=== PATIENT | female | born 1990 | race American Indian/Alaskan Native ===

== ENCOUNTER 2018-06-24 11:57 | Emergency (ER) | payer BC ==
--- NOTE | 2018-06-24 13:07 | Emergency Department Report ---
Blank Doc - Documentation Documentation: 27 y o presents with confirmed preg at7 weeks presents with vaginal bleed ing x today labs ordered U/S ordered acc evaluate
[2018-06-24 13:21] LABS: Bilirubin,Urine NEG (Negative); Blood,Urine LG (Negative); Color,Urine Red (Yellow); Urobilinogen,Urine < 2.0 mg/dL (<2.0)
[2018-06-24 13:22] LABS: RBC,Urine > 182.0 /HPF (0.0-6.0); WBC,Urine > 182.0 /HPF (0.0-6.0)
--- NOTE | 2018-06-24 13:29 | Emergency Department Report ---
ED HPI - General Chief complaint: Vaginal Bleeding Stated complaint: 8 WKS /BLEEDING Time Seen by Provider: 06/24/18 13:01 Source: patient Mode of arrival: Ambulatory Limitations: No Limitations - History of Present Illness Initial comments: And is a 27-year-old female that presents emergency room with complaints of vaginal bleeding during . Patient states she somewhat between 6 and 8 weeks . Patient has not had care yet. Patient has confirmed with her primary care. Patient denies fever or chills. Patient denies abdominal pain. Patient denies cramping. Patient denies chest pain or shortness of breath. Patient denies nausea and vomiting. Patient states her vaginal spotting started 2 hours ago MD Complaint: vaginal bleeding -: Sudden Radiation: none Severity scale (0 -10): 0 Consistency: constant Improves with: none Worsens with: none Associated symptoms: vaginal bleeding. denies: nausea/vomiting, vaginal discharge, abdominal pain, dysuria, headache, vision changes, malaise, dys paruenia, rash, seizure, shortness of breath, syncope, weakness Vaginal bleeding: clots :: Yes OB History - Current : no complications OB History - Previous Pregnancies: no complications Pre- care: none - Related Data Allergies Allergy/AdvReac Type Severity Reaction Status Date / Time latex Allergy Hives Verified 06/24/18 11:58 ED Review of Systems ROS: Stated complaint: 8 WKS /BLEEDING Other details as noted in HPI Constitutional: denies: chills, fever Eyes: denies: eye pain, eye discharge, vision change ENT: denies: ear pain, throat pain Respiratory: denies: cough, shortness of breath, wheezing Cardiovascular: denies: chest pain, palpitations Endocrine: no symptoms reported Gastrointestinal: denies: abdominal pain, nausea, diarrhea Genitourinary: denies: urgency, dysuria, discharge Musculoskeletal: denies: back pain, joint swelling, arthralgia Skin: denies: rash, lesions Neurological: denies: headache, weakness, paresthesias Psychiatric: denies: anxiety, depression Hematological/Lymphatic: denies: easy bleeding, easy bruising ED Past Medical Hx - Past Medical History Previous Medical History?: No - Surgical History Past Surgical History?: Yes Additional Surgical History: 2017 - Family History Family history: no significant - Social History Smoking Status: Never Smoker Substance Use Type: None ED Physical Exam - General Limitations: No Limitations General appearance: alert, in no apparent distress - Head Head exam: Present: atraumatic, normocephalic - Eye Eye exam: Present: normal appearance - ENT ENT exam: Present: mucous membranes moist - Neck Neck exam: Present: normal inspection - Respiratory Respiratory exam: Present: normal lung sounds bilaterally. Absent: respiratory distress - Cardiovascular Cardiovascular Exam: Present: regular rate, normal rhythm. Absent: systolic murmur, diastolic murmur, rubs, gallop - GI/Abdominal GI/Abdominal exam: Present: soft, normal bowel sounds. Absent: distended, tenderness, guarding, rebound - Extremities Exam Extremities exam: Present: normal inspection - Back Exam Back exam: Present: normal inspection - Neurological Exam Neurological exam: Present: alert, oriented X3 - Psychiatric Psychiatric exam: Present: normal affect, normal mood - Skin Skin exam: Present: warm, dry, intact, normal color. Absent: rash ED Course Vital Signs 06/24/18 12:46 Temperature 98.5 F Pulse Rate 78 Respiratory 16 Rate Blood Pressure 136/91 O2 Sat by Pulse 100 Oximetry - Reevaluation(s) Reevaluation #1: Discussed all results with patient. Patient emotional. All questions answered. Patient and family support given. Patient and given discharge inst ructions. and patient voice understanding of discharge instructions. 06/24/18 16:05 - Consultations Consultation #1: Discussed case with Dr. Pimentel. Dr. Pimentel recommends discharge and patient to follow-up with their office within 2 days. 06/24/18 16:34 ED Medical Decision Making - Lab Data Result diagrams: 06/24/18 13:40 - Radiology Data Radiology results: report reviewed PROCEDURE: US OB TRANSVAGINAL, US OB <= 14 WEEKS FETUS TECHNIQUE: Transabdominal and transvaginal imaging of the pelvis was performed. HISTORY: vaginal bleed. pos hcg COMPARISONS: None. FINDINGS: The uterus measures 11.3 x 6 x 8.4 cm. There are multiple fibroids. The largest is in the posterior right uterus measuring approximately 2.6 x 2.6 x 2.1 cm. The endometrium measures 2.3 cm in thickness. There is no intrauterine visualized at this time. The right ovary measures 3.6 x 2.7 x 2 cm and is normal in morphology. The left ovary measures 3.2 x 1.5 x 4.8 cm and is normal in morphology. There is a trace amount of free fluid in the cul-de-sac. IMPRESSION: No intrauterine is visualized at this time. Findings may represent very early intrauterine versus failed first trimester . Recommend serial beta hCG measurements and ultrasound follow-up as clinically indicated. Multiple fibroids measuring up to 2.6 cm. - Medical Decision Making Patient is a 27-year-old female that presents to the emergency room with mild vaginal bleeding. Patient found to have a positive hCG below. Patient had an ultrasound done and the ultrasound showed empty uterus. Vaginal findings significant for either early gestation or spontaneous miscarriage. Patient will be discharged home. Patient stable for discharge. Prior to discharge [facility] was consulted. - Differential Diagnosis miscarriage. Vaginal bleeding. spotting. Critical care attestation.: If time is entered above; I have spent that time in minutes in the direct care of this critically ill patient, excluding procedure time. ED Disposition Clinical Impression: Vaginal bleeding before 22 weeks gestation, Threatened miscarriage in early Disposition: DC- TO HOME OR SELFCARE Is pt being admited?: No Does the pt Need Aspirin: No Condition: Stable Instructions: Spontaneous Miscarriage (ED), Threatened Miscarriage (ED) Additional Instructions: Patient to follow up with primary care in 2-3 days. Patient to follow with [facility] in 2-3 days. Patient to return to the condition worsens. Patient to have serial serum hCGs drawn with [facility]. Patient to take Tylenol for pain. Patient to start a vitamin. Referrals: ALFONSO EDWARDS MD [Primary Care Provider] - 2-3 Days Time of Disposition: 16:17
[2018-06-24 13:53] LABS: Hematocrit 26.2 % (30.3-42.9); Mean Corpuscular HGB Conc 30 % (30-34); Platelet Count 489 K/mm3 (140-440); Red Blood Count 4.25 M/mm3 (3.65-5.03); Red Cell Distribution Width 20.1 % (13.2-15.2)
[2018-06-24 13:54] LABS: Mean Corpuscular Volume 62 fl (79-97)
--- NOTE | 2018-06-24 16:01 | Ultrasound Report ---
PROCEDURE: US OB TRANSVAGINAL, US OB <= 14 WEEKS FETUS TECHNIQUE: Transabdominal and transvaginal imaging of the pelvis was performed. HISTORY: vaginal bleed. pos hcg COMPARISONS: None. FINDINGS: The uterus measures 11.3 x 6 x 8.4 cm. There are multiple fibroids. The largest is in the posterior right uterus measuring approximately 2.6 x 2.6 x 2.1 cm. The endometrium measures 2.3 cm in thickness. There is no intrauterine visualized at this t rivas. The right ovary measures 3.6 x 2.7 x 2 cm and is normal in morphology. The left ovary measures 3.2 x 1.5 x 4.8 cm and is normal in morphology. There is a trace amount of free fluid in the cul-de-sac. IMPRESSION: No intrauterine is visualized at this time. Findings may represent very early intrauterine versus failed first trimester . Recommend serial beta hCG measurements and ultraso und follow-up as clinically indicated. Multiple fibroids measuring up to 2.6 cm. This document is electronically signed by Charmaine Ventura MD., June 24 2018 03:58:58 PM ET
[2018-06-24 16:47] VITALS: BP 134/81
== END 2018-06-24 16:47 | disposition home or self-care (01) ==
LOC: ED 11:57
DX: O20.0 Threatened abortion (principal); Z91.040 Latex allergy status; Z3A.01 Less than 8 weeks gestation of pregnancy
CPT/HCPCS: 36415; 76801; 76817; 81001; 84702; 85027